=== PATIENT | male | born 1970 | race Caucasian/White ===

== ENCOUNTER 2019-07-05 09:29 | Inpatient (IN) | payer MEDICAID ==
[~2019-07-05] VITALS: Ht 152.4 cm; Wt 51.3 kg
[2019-07-05 09:50] VITALS: BP_SYST 115
[2019-07-05] MEDS ORDERED: ONDANSETRON HCL 4 MG/2 ML VIAL IVP ONE (10:30)
[2019-07-05] MEDS ORDERED: NS 1000 ML IV.SOLN IV ONE (10:30)
[2019-07-05 11:06] LABS: HEMATOCRIT 32.9 % (36-54); HEMOGLOBIN 11.2 g/dL (14.0-18.0); MEAN CORPUSCULAR HEMOGLOBIN 33 pg (27-31); MEAN CORPUSCULAR HGB CONC 34 % (32-36); MEAN CORPUSCULAR VOLUME 96 fL (79.0-98.0); PLATELET COUNT (AUTO) 170 K/uL (130-430); RED BLOOD CELL COUNT(AUTO) 3.43 MIL/uL (4.2-6.2); RED CELL DISTRIBUTION WIDTH 16.3 % (9.0-15.0)
[2019-07-05 11:12] LABS: WHITE BLOOD COUNT (AUTO) 19.1 K/uL (4.8-10.8)
[2019-07-05 11:20] LABS: CALCIUM 9.4 mg/dL (8.4-11.0); CREATININE 0.78 mg/dL (0.55-1.30); POTASSIUM 4.1 mmol/L (3.5-5.1)
[2019-07-05 11:35] LABS: TOTAL BILIRUBIN 0.2 mg/dL (0.0-1.0)
[2019-07-05 11:58] LABS: ATYPICAL LYMPHOCYTES % 0 % (0-0); BAND % (MANUAL) 31 % (0-6); BASOPHILS % (MANUAL) 1 % (0-2); EOSINOPHILS % (MANUAL) 0 % (0-7); LYMPHOCYTES % (MANUAL) 7 % (20-46); MONOCYTES % (MANUAL) 8 % (0-11)
[2019-07-05 12:20] LABS: BILIRUBIN,URINE NEGATIVE (NEGATIVE); BLOOD, URINE NEGATIVE (NEGATIVE); GLUCOSE,URINE NEGATIVE (NEGATIVE); KETONES,URINE TRACE (NEGATIVE); LEUKOCYTE ESTERASE ,URINE NEGATIVE (NEGATIVE); NITRITE, URINE NEGATIVE (NEGATIVE); PH,URINE 7.5 (5.0-8.0); PROTEIN URINE TRACE (NEGATIVE)
[2019-07-05 12:21] LABS: CLARITY/URINE SLIGHTLY HAZY (CLEAR); COLOR,URINE AMBER (YELLOW)
[2019-07-05 12:26] LABS: BACTERIA,URINE FEW /HPF (None Seen); RBC,URINE NONE SEEN /HPF (0-3); WBC,URINE 0-3 /HPF (0-3)
[2019-07-05] MEDS ORDERED: OSELTAMIVIR PHOSPHATE 6 MG/1 ML, 60 ML SUSP PO ONE (12:30)
[2019-07-05] MEDS ORDERED: DITXL5 PO (12:53)
[2019-07-05] MEDS ORDERED: ENULOSE PO (12:53)
[2019-07-05] MEDS ORDERED: LEVE750T4 PO (12:53)
[2019-07-05] MEDS ORDERED: MULT1TAB72 PO (12:53)
[2019-07-05] MEDS ORDERED: SYN50 PO (12:53)
[2019-07-05] MEDS ORDERED: GABA-531 PO (12:53)
[2019-07-05] MEDS ORDERED: DIVA500T4 PO (12:53)
[2019-07-05] MEDS ORDERED: OSELTAMIVIR PHOSPHATE 6 MG/1 ML, 60 ML SUSP ONE (12:56)
[2019-07-05] MEDS ORDERED: IPRATROPIUM/ALBUTEROL SULFATE 3 ML AMPUL.NEB (DUONEB) INH ONE (16:30)
[2019-07-05] MEDS ORDERED: ACETAMINOPHEN 325 MG TABLET PO PRN (16:30)
[2019-07-05 16:42] VITALS: BP_SYST 107
[2019-07-05] MEDS: POTASSIUM CHLORIDE 10 MEQ in NACL 0.9% 1,000 ML IV SCH (17:32)
[2019-07-05] MEDS ORDERED: ONDANSETRON HCL 4 MG/2 ML VIAL IM PRN (18:45)
[2019-07-05] MEDS: DIVALPROEX SODIUM 500 MG TAB.SR.24H (DEPAKOTE ER) PO SCH (22:01)
[2019-07-05] MEDS: GABAPENTIN 300 MG CAPSULE PO SCH (22:02)
[2019-07-05] MEDS: levETIRAcetam 500 MG TABLET PO SCH (22:02)
[2019-07-06 01:54] VITALS: BP_SYST 160
[2019-07-06] MEDS: POTASSIUM CHLORIDE 10 MEQ in NACL 0.9% 1,000 ML IV SCH ×3 (02:56→21:45)
[2019-07-06] MEDS: LEVOTHYROXINE SODIUM 0.05 MG TABLET PO SCH (06:23)
[2019-07-06 07:29] LABS: BASOPHILS % (AUTO) 0.1 % (0.0-2.0); EOSINOPHILS # (AUTO) 0.1 K/uL (0.0-0.4); EOSINOPHILS % (AUTO) 0.7 % (0.0-4.0); HEMATOCRIT 29.7 % (36-54); LYMPHOCYTES # (AUTO) 1.7 K/uL (1.0-5.5); LYMPHOCYTES % (AUTO) 13.3 % (20.5-51.5); MEAN CORPUSCULAR HEMOGLOBIN 33 pg (27-31); MEAN CORPUSCULAR HGB CONC 34 % (32-36); MONOCYTES % (AUTO) 7.9 % (1.7-9.3); NEUTROPHILS # (AUTO) 9.7 K/uL (1.8-7.7); PLATELET COUNT (AUTO) 121 K/uL (130-430); RED BLOOD CELL COUNT(AUTO) 3.04 MIL/uL (4.2-6.2); RED CELL DISTRIBUTION WIDTH 16.8 % (9.0-15.0)
[2019-07-06] MEDS: IPRATROPIUM/ALBUTEROL SULFATE 3 ML AMPUL.NEB (DUONEB) INH SCH ×2 (07:35→14:49)
[2019-07-06 07:39] LABS: ALBUMIN 2.4 g/dL (3.4-4.8); CREATININE 0.67 mg/dL (0.55-1.30); POTASSIUM 4.3 mmol/L (3.5-5.1); TOTAL BILIRUBIN 0.3 mg/dL (0.0-1.0)
[2019-07-06 07:48] LABS: MEAN CORPUSCULAR VOLUME 98 fL (79.0-98.0); WHITE BLOOD COUNT (AUTO) 12.4 K/uL (4.8-10.8)
[2019-07-06 08:00] VITALS: BP_SYST 123
[2019-07-06] MEDS: FAMOTIDINE 20 MG TABLET PO SCH (10:25)
[2019-07-06] MEDS: OXYBUTYNIN CHLORIDE 5 MG TABLET PO SCH ×2 (10:25→20:31)
[2019-07-06] MEDS: GABAPENTIN 300 MG CAPSULE PO SCH ×2 (10:26→20:32)
[2019-07-06] MEDS: levETIRAcetam 500 MG TABLET PO SCH ×2 (10:26→20:33)
[2019-07-06] MEDS: LEVOFLOXACIN 500 MG/D5W 100 ML IV SCH (12:21)
[2019-07-06] MEDS: DIVALPROEX SODIUM 500 MG TAB.SR.24H (DEPAKOTE ER) PO SCH ×3 (12:21→20:33)
[2019-07-06 13:19] VITALS: BP_SYST 99
[2019-07-06 16:27] VITALS: BP_SYST 104
[2019-07-07] MEDS: IPRATROPIUM/ALBUTEROL SULFATE 3 ML AMPUL.NEB (DUONEB) INH SCH ×3 (00:23→16:23)
[2019-07-07 00:35] VITALS: BP_SYST 113
[2019-07-07] MEDS: LEVOTHYROXINE SODIUM 0.05 MG TABLET PO SCH (06:10)
[2019-07-07] MEDS: POTASSIUM CHLORIDE 10 MEQ in NACL 0.9% 1,000 ML IV SCH ×2 (06:12→14:00)
[2019-07-07 08:00] VITALS: BP_SYST 123
[2019-07-07] MEDS: OXYBUTYNIN CHLORIDE 5 MG TABLET PO SCH ×2 (08:07→21:00)
[2019-07-07] MEDS: LEVOFLOXACIN 500 MG/D5W 100 ML IV SCH (08:07)
[2019-07-07] MEDS: GABAPENTIN 300 MG CAPSULE PO SCH ×2 (08:07→21:00)
[2019-07-07] MEDS: levETIRAcetam 500 MG TABLET PO SCH (08:07)
[2019-07-07] MEDS: DIVALPROEX SODIUM 500 MG TAB.SR.24H (DEPAKOTE ER) PO SCH ×3 (08:07→21:00)
[2019-07-07] MEDS: FAMOTIDINE 20 MG TABLET PO SCH (08:07)
[2019-07-07 12:51] VITALS: BP_SYST 103
[2019-07-07] MEDS ORDERED: POTASSIUM CHLORIDE 10 MEQ in D5NS 1,000 ML IV SCH (18:03)
[2019-07-07 18:54] VITALS: BP_SYST 111
[2019-07-07 20:36] VITALS: BP_SYST 98
[2019-07-07] MEDS ORDERED: levETIRAcetam 500 MG in NS 100 ML IV SCH (22:00)
[2019-07-07] MEDS: D5/0.45 NS 1,000 ML IV SCH (22:06)
[2019-07-08] VITALS: BP_SYST 104
[2019-07-08] MEDS: IPRATROPIUM/ALBUTEROL SULFATE 3 ML AMPUL.NEB (DUONEB) INH SCH ×4 (00:02→23:27)
[2019-07-08] MEDS: LEVOTHYROXINE SODIUM 0.05 MG TABLET PO SCH (07:00)
[2019-07-08 08:00] VITALS: BP_SYST 109
[2019-07-08] MEDS: levETIRAcetam 500 MG in NS 100 ML IV SCH ×2 (08:46→20:50)
[2019-07-08] MEDS: LEVOFLOXACIN 500 MG/D5W 100 ML IV SCH (08:46)
[2019-07-08] MEDS: D5/0.45 NS 1,000 ML IV SCH ×2 (08:48→17:48)
[2019-07-08] MEDS: GABAPENTIN 300 MG CAPSULE PO SCH (09:00)
[2019-07-08] MEDS: FAMOTIDINE 20 MG TABLET PO SCH (09:00)
[2019-07-08] MEDS: DIVALPROEX SODIUM 500 MG TAB.SR.24H (DEPAKOTE ER) PO SCH (09:00)
[2019-07-08] MEDS: OXYBUTYNIN CHLORIDE 5 MG TABLET PO SCH (09:00)
[2019-07-08 12:23] VITALS: BP_SYST 109
[2019-07-08 12:53] VITALS: BP_SYST 108
[2019-07-08] MEDS ORDERED: DIVALPROEX SODIUM 500 MG TABLET( DEPAKOTE) PO SCH (15:15)
[2019-07-08 16:48] VITALS: BP_SYST 102
[2019-07-08] MEDS: FAMOTIDINE PF 20 MG/2 ML VIAL IVP SCH (17:47)
[2019-07-08 20:21] VITALS: BP_SYST 115
[2019-07-08] MEDS: VALPROATE SODIUM 500 MG in D5W 100 ML IV SCH (22:13)
[2019-07-09] VITALS (7 sets, daily range): BP systolic 96–136
[2019-07-09] MEDS: D5/0.45 NS 1,000 ML IV SCH ×3 (05:06→23:15)
[2019-07-09] MEDS: VALPROATE SODIUM 500 MG in D5W 100 ML IV SCH ×3 (05:57→21:10)
[2019-07-09] MEDS: IPRATROPIUM/ALBUTEROL SULFATE 3 ML AMPUL.NEB (DUONEB) INH SCH ×3 (08:07→23:17)
[2019-07-09] MEDS: LEVOFLOXACIN 500 MG/D5W 100 ML IV SCH (09:13)
[2019-07-09] MEDS: levETIRAcetam 500 MG in NS 100 ML IV SCH ×2 (09:13→21:09)
[2019-07-09] MEDS: LEVOTHYROXINE SODIUM 0.1 MG VIAL IVP SCH (09:15)
[2019-07-09] MEDS ORDERED: [UNRECOGNIZED DRUG - REMARK] XX PRN (14:15)
[2019-07-09] MEDS: FAMOTIDINE PF 20 MG/2 ML VIAL IVP SCH (16:07)
[2019-07-10] MEDS: VALPROATE SODIUM 500 MG in D5W 100 ML IV SCH ×3 (05:33→22:00)
[2019-07-10 06:40] LABS: CALCIUM 8.9 mg/dL (8.4-11.0); CREATININE 0.56 mg/dL (0.55-1.30); PHOSPHORUS 3.8 mg/dL (2.7-4.5); POTASSIUM 3.4 mmol/L (3.5-5.1)
[2019-07-10] MEDS: IPRATROPIUM/ALBUTEROL SULFATE 3 ML AMPUL.NEB (DUONEB) INH SCH ×3 (07:17→23:05)
[2019-07-10] MEDS: LEVOFLOXACIN 500 MG/D5W 100 ML IV SCH (09:07)
[2019-07-10] MEDS: LEVOTHYROXINE SODIUM 0.1 MG VIAL IVP SCH (09:07)
[2019-07-10] MEDS: levETIRAcetam 500 MG in NS 100 ML IV SCH (09:07)
[2019-07-10] MEDS: D5/0.45 NS 1,000 ML IV SCH ×2 (09:14→19:15)
[2019-07-10] MEDS ORDERED: AZITHROMYCIN 500 MG in NS 250 ML IV ONE (11:00)
[2019-07-10 12:57] VITALS: BP_SYST 91
[2019-07-10 16:59] VITALS: BP_SYST 91
[2019-07-10] MEDS: FAMOTIDINE PF 20 MG/2 ML VIAL IVP SCH (17:28)
[2019-07-10] MEDS ORDERED: TPN PERIPHERAL 0.0001 ML, SODIUM ACETATE 40 MEQ, POTASSIUM CHLORIDE 20 MEQ, K PHOS 9 MM... IV SCH ×10 (21:00)
[2019-07-11] VITALS (8 sets, daily range): BP systolic 92–122
[2019-07-11] MEDS: levETIRAcetam 500 MG in NS 100 ML IV SCH ×3 (00:32→21:30)
[2019-07-11] MEDS: FAT EMULSIONS 250 ML IV SCH ×2 (02:33→21:39)
[2019-07-11] MEDS: VALPROATE SODIUM 500 MG in D5W 100 ML IV SCH ×3 (06:42→21:56)
[2019-07-11] MEDS: D5/0.45 NS 1,000 ML IV SCH ×2 (06:43→10:50)
[2019-07-11] MEDS: IPRATROPIUM/ALBUTEROL SULFATE 3 ML AMPUL.NEB (DUONEB) INH SCH ×3 (07:18→23:18)
[2019-07-11 07:22] LABS: BASOPHILS % (AUTO) 0.1 % (0.0-2.0); EOSINOPHILS # (AUTO) 0.2 K/uL (0.0-0.4); EOSINOPHILS % (AUTO) 4.6 % (0.0-4.0); HEMATOCRIT 28.6 % (36-54); HEMOGLOBIN 9.6 g/dL (14.0-18.0); LYMPHOCYTES # (AUTO) 1.7 K/uL (1.0-5.5); LYMPHOCYTES % (AUTO) 42.5 % (20.5-51.5); MEAN CORPUSCULAR HEMOGLOBIN 32 pg (27-31); MEAN CORPUSCULAR HGB CONC 34 % (32-36); MEAN CORPUSCULAR VOLUME 96 fL (79.0-98.0); MONOCYTES # (AUTO) 0.7 K/uL (0.0-1.0); MONOCYTES % (AUTO) 16.3 % (1.7-9.3); NEUTROPHILS # (AUTO) 1.5 K/uL (1.8-7.7); NEUTROPHILS % (AUTO) 36.5 % (40.0-70.0); PLATELET COUNT (AUTO) 130 K/uL (130-430); RED BLOOD CELL COUNT(AUTO) 2.98 MIL/uL (4.2-6.2); RED CELL DISTRIBUTION WIDTH 15.7 % (9.0-15.0); WHITE BLOOD COUNT (AUTO) 4.1 K/uL (4.8-10.8)
[2019-07-11 07:49] LABS: ALBUMIN 2.4 g/dL (3.4-4.8); CALCIUM 9.1 mg/dL (8.4-11.0); CREATININE 0.52 mg/dL (0.55-1.30); PHOSPHORUS 3.7 mg/dL (2.7-4.5); POTASSIUM 3.4 mmol/L (3.5-5.1); TOTAL BILIRUBIN 0.4 mg/dL (0.0-1.0)
[2019-07-11] MEDS: AZITHROMYCIN 250 MG in NS 250 ML IV SCH (10:24)
[2019-07-11] MEDS: LEVOTHYROXINE SODIUM 0.1 MG VIAL IVP SCH (10:25)
[2019-07-11] MEDS: FAMOTIDINE PF 20 MG/2 ML VIAL IVP SCH (17:43)
[2019-07-11] MEDS ORDERED: [UNRECOGNIZED DRUG - OTHER] IV SCH ×10 (21:00)
[2019-07-11] MEDS ORDERED: TPN PERIPHERAL IV SCH ×10 (21:00)
[2019-07-11] MEDS ORDERED: POTASSIUM ACETATE IV SCH ×10 (21:00)
[2019-07-11] MEDS ORDERED: SODIUM CHLORIDE IV SCH ×10 (21:00)
[2019-07-12] MEDS: D5/0.45 NS 1,000 ML IV SCH (04:54)
[2019-07-12] MEDS: VALPROATE SODIUM 500 MG in D5W 100 ML IV SCH ×3 (06:07→21:08)
[2019-07-12 07:43] LABS: CALCIUM 8.3 mg/dL (8.4-11.0); CREATININE 0.54 mg/dL (0.55-1.30); PHOSPHORUS 3.4 mg/dL (2.7-4.5); POTASSIUM 3.7 mmol/L (3.5-5.1)
[2019-07-12] MEDS: IPRATROPIUM/ALBUTEROL SULFATE 3 ML AMPUL.NEB (DUONEB) INH SCH ×3 (08:08→23:14)
[2019-07-12] MEDS: levETIRAcetam 500 MG in NS 100 ML IV SCH ×2 (08:41→20:00)
[2019-07-12] MEDS: AZITHROMYCIN 250 MG in NS 250 ML IV SCH (08:41)
[2019-07-12 12:42] VITALS: BP_SYST 99
[2019-07-12] MEDS: LEVOTHYROXINE SODIUM 0.1 MG VIAL IVP SCH (12:57)
[2019-07-12 16:09] VITALS: BP_SYST 110
[2019-07-12] MEDS: FAMOTIDINE PF 20 MG/2 ML VIAL IVP SCH (16:48)
[2019-07-12 20:00] VITALS: BP_SYST 106
[2019-07-12] MEDS: FAT EMULSIONS 250 ML IV SCH (20:01)
[2019-07-12] MEDS ORDERED: SODIUM CHLORIDE IV SCH ×10 (21:00)
[2019-07-12] MEDS ORDERED: POTASSIUM ACETATE IV SCH ×10 (21:00)
[2019-07-12] MEDS ORDERED: TPN PERIPHERAL IV SCH ×10 (21:00)
[2019-07-12] MEDS ORDERED: [UNRECOGNIZED DRUG - OTHER] IV SCH ×10 (21:00)
[2019-07-13] VITALS: BP_SYST 117
[2019-07-13] MEDS: VALPROATE SODIUM 500 MG in D5W 100 ML IV SCH ×3 (05:40→21:35)
[2019-07-13 07:47] LABS: CALCIUM 8.8 mg/dL (8.4-11.0); CREATININE 0.58 mg/dL (0.55-1.30); PHOSPHORUS 3.7 mg/dL (2.7-4.5); POTASSIUM 3.9 mmol/L (3.5-5.1)
[2019-07-13] MEDS: IPRATROPIUM/ALBUTEROL SULFATE 3 ML AMPUL.NEB (DUONEB) INH SCH ×2 (07:57→14:54)
[2019-07-13] MEDS: LEVOTHYROXINE SODIUM 0.1 MG VIAL IVP SCH (09:42)
[2019-07-13] MEDS: AZITHROMYCIN 250 MG in NS 250 ML IV SCH (09:43)
[2019-07-13 09:54] VITALS: BP_SYST 102
[2019-07-13] MEDS: levETIRAcetam 500 MG in NS 100 ML IV SCH ×2 (09:54→20:18)
[2019-07-13] MEDS: D5/0.45 NS 1,000 ML IV SCH (11:01)
[2019-07-13 12:45] VITALS: BP_SYST 109
[2019-07-13 16:32] VITALS: BP_SYST 128
[2019-07-13] MEDS: FAMOTIDINE PF 20 MG/2 ML VIAL IVP SCH (18:24)
[2019-07-13 20:30] VITALS: BP_SYST 104
[2019-07-13] MEDS: FAT EMULSIONS 250 ML IV SCH (20:35)
[2019-07-13] MEDS ORDERED: TPN PERIPHERAL IV SCH ×10 (21:00)
[2019-07-13] MEDS ORDERED: SODIUM CHLORIDE IV SCH ×10 (21:00)
[2019-07-13] MEDS ORDERED: POTASSIUM ACETATE IV SCH ×10 (21:00)
[2019-07-13] MEDS ORDERED: [UNRECOGNIZED DRUG - OTHER] IV SCH ×10 (21:00)
[2019-07-14 00:33] VITALS: BP_SYST 112
[2019-07-14] MEDS: VALPROATE SODIUM 500 MG in D5W 100 ML IV SCH ×3 (06:16→22:48)
[2019-07-14] MEDS: IPRATROPIUM/ALBUTEROL SULFATE 3 ML AMPUL.NEB (DUONEB) INH SCH ×2 (07:27→23:53)
[2019-07-14 07:31] LABS: CALCIUM 8.3 mg/dL (8.4-11.0); CREATININE 0.56 mg/dL (0.55-1.30); PHOSPHORUS 3.5 mg/dL (2.7-4.5)
[2019-07-14] MEDS: levETIRAcetam 500 MG in NS 100 ML IV SCH ×2 (08:20→20:55)
[2019-07-14] MEDS: LEVOTHYROXINE SODIUM 0.1 MG VIAL IVP SCH (09:05)
[2019-07-14] MEDS: AZITHROMYCIN 250 MG in NS 250 ML IV SCH (09:11)
[2019-07-14] MEDS ORDERED: BARIUM SULFATE 135 ML SUSP.RECON (E-Z-HD) PO ONE (11:02)
[2019-07-14 12:35] VITALS: BP_SYST 116
[2019-07-14 16:20] VITALS: BP_SYST 144
[2019-07-14] MEDS: FAMOTIDINE PF 20 MG/2 ML VIAL IVP SCH (16:32)
[2019-07-14] MEDS: D5/0.45 NS 1,000 ML IV SCH (16:34)
[2019-07-14 20:30] VITALS: BP_SYST 107
[2019-07-14] MEDS ORDERED: TPN PERIPHERAL IV SCH ×10 (21:00)
[2019-07-14] MEDS ORDERED: [UNRECOGNIZED DRUG - OTHER] IV SCH ×10 (21:00)
[2019-07-14] MEDS ORDERED: SODIUM CHLORIDE IV SCH ×10 (21:00)
[2019-07-14] MEDS ORDERED: POTASSIUM ACETATE IV SCH ×10 (21:00)
[2019-07-14] MEDS: FAT EMULSIONS 250 ML IV SCH (21:02)
[2019-07-15 00:33] VITALS: BP_SYST 116
[2019-07-15] MEDS: VALPROATE SODIUM 500 MG in D5W 100 ML IV SCH ×3 (06:06→22:39)
[2019-07-15 06:14] LABS: ALBUMIN 2.5 g/dL (3.4-4.8); CALCIUM 8.9 mg/dL (8.4-11.0); CREATININE 0.63 mg/dL (0.55-1.30); POTASSIUM 4.1 mmol/L (3.5-5.1); TOTAL BILIRUBIN 0.2 mg/dL (0.0-1.0)
[2019-07-15] MEDS: IPRATROPIUM/ALBUTEROL SULFATE 3 ML AMPUL.NEB (DUONEB) INH SCH ×3 (07:09→23:12)
[2019-07-15 08:00] VITALS: BP_SYST 108
[2019-07-15] MEDS: levETIRAcetam 500 MG in NS 100 ML IV SCH ×2 (09:30→20:50)
[2019-07-15] MEDS: LEVOTHYROXINE SODIUM 0.1 MG VIAL IVP SCH (09:31)
[2019-07-15] MEDS: AZITHROMYCIN 250 MG in NS 250 ML IV SCH (10:20)
[2019-07-15 12:42] VITALS: BP_SYST 122
[2019-07-15 16:50] VITALS: BP_SYST 117
[2019-07-15] MEDS: FAMOTIDINE PF 20 MG/2 ML VIAL IVP SCH (17:56)
[2019-07-15] MEDS: D5/0.45 NS 1,000 ML IV SCH (17:56)
[2019-07-15 20:00] VITALS: BP_SYST 108
[2019-07-15] MEDS: FAT EMULSIONS 250 ML IV SCH (20:50)
[2019-07-15] MEDS: ACETAMINOPHEN 650 MG SUPP.RECT RC PRN (20:58)
[2019-07-15] MEDS ORDERED: [UNRECOGNIZED DRUG - OTHER] IV SCH ×10 (21:00)
[2019-07-15] MEDS ORDERED: TPN PERIPHERAL IV SCH ×10 (21:00)
[2019-07-15] MEDS ORDERED: POTASSIUM ACETATE IV SCH ×10 (21:00)
[2019-07-15] MEDS ORDERED: SODIUM CHLORIDE IV SCH ×10 (21:00)
[2019-07-16 00:26] VITALS: BP_SYST 131
[2019-07-16] MEDS: VALPROATE SODIUM 500 MG in D5W 100 ML IV SCH ×3 (05:36→21:51)
[2019-07-16] MEDS: IPRATROPIUM/ALBUTEROL SULFATE 3 ML AMPUL.NEB (DUONEB) INH SCH ×3 (06:55→23:36)
[2019-07-16 07:45] VITALS: BP_SYST 111
[2019-07-16 09:35] LABS: ALBUMIN 2.5 g/dL (3.4-4.8); CALCIUM 8.5 mg/dL (8.4-11.0); CREATININE 0.62 mg/dL (0.55-1.30); PHOSPHORUS 2.2 mg/dL (2.7-4.5); POTASSIUM 4.2 mmol/L (3.5-5.1); TOTAL BILIRUBIN 0.3 mg/dL (0.0-1.0)
[2019-07-16] MEDS: levETIRAcetam 500 MG in NS 100 ML IV SCH ×2 (10:27→21:50)
[2019-07-16] MEDS: LEVOTHYROXINE SODIUM 0.1 MG VIAL IVP SCH (10:27)
[2019-07-16] MEDS ORDERED: NACL 0.9% 1,000 ML IV SCH ×3 (11:00→14:00)
[2019-07-16 12:00] VITALS: BP_SYST 108
[2019-07-16] MEDS: NACL 0.9% 1,000 ML IV SCH (14:16)
[2019-07-16 15:00] LABS: BILIRUBIN,URINE NEGATIVE (NEGATIVE); BLOOD, URINE 1+ (NEGATIVE); CLARITY/URINE CLEAR (CLEAR); COLOR,URINE YELLOW (YELLOW); GLUCOSE,URINE TRACE (NEGATIVE); KETONES,URINE NEGATIVE (NEGATIVE); LEUKOCYTE ESTERASE ,URINE NEGATIVE (NEGATIVE); NITRITE, URINE NEGATIVE (NEGATIVE); PROTEIN URINE NEGATIVE (NEGATIVE)
[2019-07-16 15:12] LABS: BACTERIA,URINE FEW /HPF (None Seen); MUCUS,URINE None Seen /LPF (None Seen); RBC,URINE 0-3 /HPF (0-3); WBC,URINE 0-3 /HPF (0-3)
[2019-07-16 16:00] VITALS: BP_SYST 100
[2019-07-16] MEDS: FAMOTIDINE PF 20 MG/2 ML VIAL IVP SCH (17:52)
[2019-07-16 20:00] VITALS: BP_SYST 100
[2019-07-16] MEDS ORDERED: SODIUM CHLORIDE IV SCH ×10 (21:00)
[2019-07-16] MEDS ORDERED: [UNRECOGNIZED DRUG - OTHER] IV SCH ×10 (21:00)
[2019-07-16] MEDS ORDERED: POTASSIUM ACETATE IV SCH ×10 (21:00)
[2019-07-16] MEDS ORDERED: TPN PERIPHERAL IV SCH ×10 (21:00)
[2019-07-16] MEDS: FAT EMULSIONS 250 ML IV SCH (21:43)
[2019-07-17 00:10] VITALS: BP_SYST 100
[2019-07-17] MEDS: IPRATROPIUM/ALBUTEROL SULFATE 3 ML AMPUL.NEB (DUONEB) INH SCH ×3 (07:23→23:01)
[2019-07-17] MEDS: VALPROATE SODIUM 500 MG in D5W 100 ML IV SCH ×2 (07:30→19:46)
[2019-07-17 08:00] VITALS: BP_SYST 128
[2019-07-17 08:51] LABS: BASOPHILS % (AUTO) 0.7 % (0.0-2.0); EOSINOPHILS % (AUTO) 0.1 % (0.0-4.0); HEMATOCRIT 25.7 % (36-54); HEMOGLOBIN 8.7 g/dL (14.0-18.0); LYMPHOCYTES # (AUTO) 0.7 K/uL (1.0-5.5); LYMPHOCYTES % (AUTO) 10.6 % (20.5-51.5); MEAN CORPUSCULAR HEMOGLOBIN 32 pg (27-31); MEAN CORPUSCULAR HGB CONC 34 % (32-36); MEAN CORPUSCULAR VOLUME 96 fL (79.0-98.0); MONOCYTES # (AUTO) 0.6 K/uL (0.0-1.0); MONOCYTES % (AUTO) 9.1 % (1.7-9.3); NEUTROPHILS # (AUTO) 5.3 K/uL (1.8-7.7); NEUTROPHILS % (AUTO) 79.5 % (40.0-70.0); PLATELET COUNT (AUTO) 149 K/uL (130-430); RED BLOOD CELL COUNT(AUTO) 2.68 MIL/uL (4.2-6.2); RED CELL DISTRIBUTION WIDTH 15.9 % (9.0-15.0); WHITE BLOOD COUNT (AUTO) 6.7 K/uL (4.8-10.8)
[2019-07-17 09:06] LABS: ALBUMIN 2.3 g/dL (3.4-4.8); CALCIUM 8.4 mg/dL (8.4-11.0); CREATININE 0.64 mg/dL (0.55-1.30); POTASSIUM 3.3 mmol/L (3.5-5.1); TOTAL BILIRUBIN 0.2 mg/dL (0.0-1.0)
[2019-07-17] MEDS: levETIRAcetam 500 MG in NS 100 ML IV SCH ×2 (09:30→20:57)
[2019-07-17] MEDS: LEVOTHYROXINE SODIUM 0.1 MG VIAL IVP SCH (09:30)
[2019-07-17 12:35] VITALS: BP_SYST 101
[2019-07-17 16:15] VITALS: BP_SYST 127
[2019-07-17 16:35] VITALS: BP_SYST 102
[2019-07-17] MEDS ORDERED: [UNRECOGNIZED DRUG - REMARK] XX SCH (17:15)
[2019-07-17] MEDS: FAMOTIDINE PF 20 MG/2 ML VIAL IVP SCH (19:45)
[2019-07-17] MEDS: NACL 0.9% 1,000 ML IV SCH (19:51)
[2019-07-17] MEDS ORDERED: TPN PERIPHERAL IV SCH ×11 (21:00)
[2019-07-17] MEDS: FAT EMULSIONS 250 ML IV SCH (21:00)
[2019-07-17] MEDS ORDERED: POTASSIUM CHLORIDE IV SCH ×11 (21:00)
[2019-07-17] MEDS ORDERED: SODIUM CHLORIDE IV SCH ×11 (21:00)
[2019-07-17] MEDS ORDERED: [UNRECOGNIZED DRUG - OTHER] IV SCH ×11 (21:00)
[2019-07-18 00:14] VITALS: BP_SYST 101
[2019-07-18] MEDS: VALPROATE SODIUM 500 MG in D5W 100 ML IV SCH ×3 (01:51→14:00)
[2019-07-18] MEDS: IPRATROPIUM/ALBUTEROL SULFATE 3 ML AMPUL.NEB (DUONEB) INH SCH (07:16)
[2019-07-18 08:21] LABS: ALBUMIN 2.1 g/dL (3.4-4.8); CALCIUM 8.1 mg/dL (8.4-11.0); CREATININE 0.65 mg/dL (0.55-1.30); PHOSPHORUS 3.2 mg/dL (2.7-4.5); THYROID STIMULATING HORMONE 5.63 uIu/mL (0.36-3.74); TOTAL BILIRUBIN 0.3 mg/dL (0.0-1.0)
[2019-07-18] MEDS: ACETAMINOPHEN 650 MG SUPP.RECT RC PRN (08:57)
[2019-07-18] MEDS: LEVOTHYROXINE SODIUM 0.1 MG VIAL IVP SCH (08:57)
[2019-07-18] MEDS: levETIRAcetam 500 MG in NS 100 ML IV SCH ×2 (10:17→22:29)
[2019-07-18 12:20] VITALS: BP_SYST 112
[2019-07-18] MEDS ORDERED: IPRATROPIUM/ALBUTEROL SULFATE 3 ML AMPUL.NEB (DUONEB) INH PRN (13:30)
[2019-07-18] MEDS: NACL 0.9% 1,000 ML IV SCH (14:00)
[2019-07-18 15:30] VITALS: BP_SYST 89
[2019-07-18] MEDS ORDERED: NS 250 ML IV ONE (15:30)
[2019-07-18] MEDS ORDERED: LEVOFLOXACIN 500 MG/D5W 100 ML IV ONE (16:15)
[2019-07-18] MEDS ORDERED: INSULIN LISPRO SLIDING SCALE 100 UNITS/ML VIAL (humaLOG) SUBCUT PRN (16:30)
[2019-07-18] MEDS: FAMOTIDINE PF 20 MG/2 ML VIAL IVP SCH (17:41)
[2019-07-18 20:00] VITALS: BP_SYST 93
[2019-07-18] MEDS ORDERED: VANCOMYCIN HCL 1,000 MG in NS 250 ML IV ONE (20:15)
[2019-07-18] MEDS ORDERED: SODIUM CHLORIDE IV SCH ×11 (21:00)
[2019-07-18] MEDS ORDERED: TPN PERIPHERAL IV SCH ×11 (21:00)
[2019-07-18] MEDS ORDERED: POTASSIUM CHLORIDE IV SCH ×11 (21:00)
[2019-07-18] MEDS ORDERED: [UNRECOGNIZED DRUG - OTHER] IV SCH ×11 (21:00)
[2019-07-19] MEDS: VALPROATE SODIUM 500 MG in D5W 100 ML IV SCH ×5 (00:32→22:07)
[2019-07-19 00:47] LABS: BILIRUBIN,URINE NEGATIVE (NEGATIVE); BLOOD, URINE 3+ (NEGATIVE); CLARITY/URINE CLEAR (CLEAR); COLOR,URINE YELLOW (YELLOW); GLUCOSE,URINE NEGATIVE (NEGATIVE); KETONES,URINE NEGATIVE (NEGATIVE); LEUKOCYTE ESTERASE ,URINE NEGATIVE (NEGATIVE); NITRITE, URINE NEGATIVE (NEGATIVE); PROTEIN URINE TRACE (NEGATIVE)
[2019-07-19 00:52] VITALS: BP_SYST 106
[2019-07-19 01:01] LABS: BACTERIA,URINE FEW /HPF (None Seen); RBC,URINE 50-80 /HPF (0-3); WBC,URINE 0-3 /HPF (0-3)
[2019-07-19 08:00] VITALS: BP_SYST 105
[2019-07-19 08:07] LABS: ALBUMIN 2.4 g/dL (3.4-4.8); CALCIUM 8.5 mg/dL (8.4-11.0); CREATININE 0.57 mg/dL (0.55-1.30); TOTAL BILIRUBIN 0.3 mg/dL (0.0-1.0)
[2019-07-19] MEDS: LEVOTHYROXINE SODIUM 0.1 MG VIAL IVP SCH (09:05)
[2019-07-19] MEDS: levETIRAcetam 500 MG in NS 100 ML IV SCH ×2 (09:05→22:09)
[2019-07-19] MEDS: VANCOMYCIN HCL 750 MG in NS 250 ML IV SCH ×2 (09:06→22:59)
[2019-07-19] MEDS ORDERED: *PPN PER PHARMACY XX PRN (11:30)
[2019-07-19 12:00] VITALS: BP_SYST 104
[2019-07-19 17:17] VITALS: BP_SYST 105
[2019-07-19] MEDS: FAMOTIDINE PF 20 MG/2 ML VIAL IVP SCH (17:22)
[2019-07-19] MEDS: ACETAMINOPHEN 650 MG SUPP.RECT RC PRN (17:27)
[2019-07-19] MEDS ORDERED: K PHOS IV SCH ×10 (21:00)
[2019-07-19] MEDS ORDERED: FAT EMULSIONS 250 ML IV SCH (21:00)
[2019-07-19] MEDS ORDERED: [UNRECOGNIZED DRUG - OTHER] IV SCH ×10 (21:00)
[2019-07-19] MEDS ORDERED: TPN PERIPHERAL IV SCH ×10 (21:00)
[2019-07-19] MEDS ORDERED: POTASSIUM CHLORIDE IV SCH ×10 (21:00)
[2019-07-19 22:00] VITALS: BP_SYST 100
[2019-07-19] MEDS: NACL 0.9% 1,000 ML IV SCH (22:13)
[2019-07-20 01:17] VITALS: BP_SYST 102
[2019-07-20] MEDS: VALPROATE SODIUM 500 MG in D5W 100 ML IV SCH ×3 (06:07→23:05)
[2019-07-20 07:04] LABS: CALCIUM 8.5 mg/dL (8.4-11.0); CREATININE 0.57 mg/dL (0.55-1.30); POTASSIUM 3.7 mmol/L (3.5-5.1); TOTAL BILIRUBIN 0.2 mg/dL (0.0-1.0)
[2019-07-20 07:13] LABS: PROTHROMBIN TIME 10.3 SECS (9.5-12.5)
[2019-07-20] MEDS ORDERED: MEPERIDINE HCL/PF 25 MG/ML DISP.SYRIN ONE ×2 (07:49→07:50)
[2019-07-20 07:55] VITALS: BP_SYST 116
[2019-07-20] MEDS: LEVOTHYROXINE SODIUM 0.1 MG VIAL IVP SCH (08:55)
[2019-07-20] MEDS: VANCOMYCIN HCL 750 MG in NS 250 ML IV SCH ×2 (08:56→22:01)
[2019-07-20] MEDS: levETIRAcetam 500 MG in NS 100 ML IV SCH ×2 (08:56→20:59)
[2019-07-20] MEDS: MIDAZOLAM HCL 5 MG/5 ML VIAL ONE ×3 (09:34→09:40)
[2019-07-20] MEDS: MEPERIDINE HCL/PF 25 MG/ML DISP.SYRIN ONE ×2 (09:37→09:40)
[2019-07-20 10:05] VITALS: BP_SYST 116
[2019-07-20 12:00] VITALS: BP_SYST 102; BP_SYST 108
[2019-07-20 16:21] VITALS: BP_SYST 108
[2019-07-20] MEDS ORDERED: COMMUNICATION ORDER XX ONE (17:30)
[2019-07-20] MEDS: FAMOTIDINE PF 20 MG/2 ML VIAL IVP SCH (17:37)
[2019-07-20 20:00] VITALS: BP_SYST 126
[2019-07-20] MEDS: NACL 0.9% 1,000 ML IV SCH (20:02)
[2019-07-20] MEDS ORDERED: [UNRECOGNIZED DRUG - OTHER] IV SCH ×10 (21:00)
[2019-07-20] MEDS ORDERED: TPN PERIPHERAL IV SCH ×10 (21:00)
[2019-07-20] MEDS ORDERED: SODIUM CHLORIDE IV SCH ×10 (21:00)
[2019-07-20] MEDS ORDERED: POTASSIUM CHLORIDE IV SCH ×10 (21:00)
[2019-07-21 00:04] VITALS: BP_SYST 99
[2019-07-21] MEDS: VALPROATE SODIUM 500 MG in D5W 100 ML IV SCH (05:21)
[2019-07-21 06:46] LABS: CALCIUM 8.5 mg/dL (8.4-11.0); CREATININE 0.43 mg/dL (0.55-1.30); PHOSPHORUS 4.1 mg/dL (2.7-4.5); POTASSIUM 3.6 mmol/L (3.5-5.1)
[2019-07-21 08:00] VITALS: BP_SYST 155
[2019-07-21] MEDS: levETIRAcetam 500 MG in NS 100 ML IV SCH (08:17)
[2019-07-21] MEDS: LEVOTHYROXINE SODIUM 0.1 MG VIAL IVP SCH (08:17)
[2019-07-21] MEDS ORDERED: VANCOMYCIN HCL 1,000 MG in NS 250 ML IV SCH (09:00)
[2019-07-21] MEDS: LevETIRAcetam 500 MG/5 ML UDC ORAL LIQUID GT SCH ×2 (09:00→20:54)
[2019-07-21 12:40] VITALS: BP_SYST 104
[2019-07-21] MEDS: VALPROIC ACID ORAL SYRUP 250 MG/5 ML UDC GT SCH ×2 (14:07→21:02)
[2019-07-21] MEDS ORDERED: ACETAMINOPHEN 650 MG/20.3 ML UDC GT PRN (16:15)
[2019-07-21] MEDS ORDERED: DOCUSATE SODIUM 100 MG/10 ML UDC GT ONE (16:15)
[2019-07-21 16:52] VITALS: BP_SYST 102
[2019-07-21 20:43] VITALS: BP_SYST 112
[2019-07-21] MEDS: SENNA 8.8 MG/5 ML UDC GT SCH (20:54)
[2019-07-22 00:15] VITALS: BP_SYST 106
[2019-07-22] MEDS: LEVOTHYROXINE SODIUM 0.05 MG TABLET GT SCH (06:36)
[2019-07-22] MEDS: VALPROIC ACID ORAL SYRUP 250 MG/5 ML UDC GT SCH ×3 (06:36→21:54)
[2019-07-22 08:03] VITALS: BP_SYST 103
[2019-07-22] MEDS: LevETIRAcetam 500 MG/5 ML UDC ORAL LIQUID GT SCH ×2 (09:04→21:54)
[2019-07-22] MEDS: FAMOTIDINE 20 MG TABLET GT SCH (09:04)
[2019-07-22] MEDS: DOCUSATE SODIUM 100 MG/10 ML UDC GT SCH (09:05)
[2019-07-22 12:20] VITALS: BP_SYST 94
[2019-07-22 16:36] VITALS: BP_SYST 98
[2019-07-22 20:00] VITALS: BP_SYST 102
[2019-07-22] MEDS: SENNA 8.8 MG/5 ML UDC GT SCH (21:53)
[2019-07-23 00:43] VITALS: BP_SYST 105
[2019-07-23] MEDS: VALPROIC ACID ORAL SYRUP 250 MG/5 ML UDC GT SCH ×3 (06:32→21:39)
[2019-07-23] MEDS: LEVOTHYROXINE SODIUM 0.05 MG TABLET GT SCH (06:32)
[2019-07-23 08:00] VITALS: BP_SYST 107
[2019-07-23] MEDS: FAMOTIDINE 20 MG TABLET GT SCH (08:51)
[2019-07-23] MEDS: LevETIRAcetam 500 MG/5 ML UDC ORAL LIQUID GT SCH ×2 (08:51→21:39)
[2019-07-23] MEDS: DOCUSATE SODIUM 100 MG/10 ML UDC GT SCH (08:51)
[2019-07-23 10:00] VITALS: BP_SYST 105
[2019-07-23 12:34] VITALS: BP_SYST 96
[2019-07-23 16:38] VITALS: BP_SYST 94
[2019-07-23 21:36] VITALS: BP_SYST 94
[2019-07-23] MEDS: SENNA 8.8 MG/5 ML UDC GT SCH (21:39)
[2019-07-24 00:41] VITALS: BP_SYST 93
[2019-07-24] MEDS: LEVOTHYROXINE SODIUM 0.05 MG TABLET GT SCH (06:05)
[2019-07-24] MEDS: VALPROIC ACID ORAL SYRUP 250 MG/5 ML UDC GT SCH ×2 (06:06→14:04)
[2019-07-24 08:00] VITALS: BP_SYST 96
[2019-07-24] MEDS ORDERED: SENNA 8.8 MG/5 ML UDC GT PRN (08:00)
[2019-07-24] MEDS: LevETIRAcetam 500 MG/5 ML UDC ORAL LIQUID GT SCH (10:19)
[2019-07-24] MEDS: DOCUSATE SODIUM 100 MG/10 ML UDC GT SCH (10:19)
[2019-07-24] MEDS: FAMOTIDINE 20 MG TABLET GT SCH (10:19)
[2019-07-24 13:29] VITALS: BP_SYST 114
[2019-07-24 14:45] VITALS: BP_SYST 114
== END 2019-07-24 15:46 | DRG 137 ==
LOC: SED 09:29 → STU 12:35 → SMU 07-09 15:36 → STU 07-18 23:18 → SMU 07-21 18:42
PROVIDERS: ADMIT Internal Medicine; ATTEND Internal Medicine
PROC: 0DH63UZ Insertion of Feeding Device into Stomach, Percutaneous Approach (ICD-10-PCS; principal; 2019-07-20 08:00)
DX: J69.0 Pneumonitis due to inhalation of food and vomit (principal); E43 Unspecified severe protein-calorie malnutrition; D69.6 Thrombocytopenia, unspecified; R13.12 Dysphagia, oropharyngeal phase; E03.9 Hypothyroidism, unspecified; G40.909 Epilepsy, unspecified, not intractable, without status epilepticus; K44.9 Diaphragmatic hernia without obstruction or gangrene; K29.70 Gastritis, unspecified, without bleeding; B96.89 Other specified bacterial agents as the cause of diseases classified elsewhere; I34.0 Nonrheumatic mitral (valve) insufficiency; Z68.22 Body mass index [BMI] 22.0-22.9, adult; Z87.01 Personal history of pneumonia (recurrent); Z88.0 Allergy status to penicillin; Z91.018 Allergy to other foods; Z79.899 Other long term (current) drug therapy
CPT/HCPCS: 36415; 43246; 71045; 74230; 80048; 80053; 80202-TC; 81000-TC; 82962; 83605; 83735-TC; 84100-TC; 84443-TC; 84478-TC; 84484; 85007; 85025; 85027; 85610-TC; 86710; 87040-TC; 87070-TC; 87086; 87205-TC; 92610-GN; 92611-GN; 93005; 94640; 94760; 96361; 96365; 96375; 96376; 99285; G0378; G9035; J0456; J0610; J1953; J1956; J2175; J2250; J2405; J3370; J3475; J3480; J3490; J7030; J7042; J7050; J7060; J7131